=== PATIENT | male | born 1970 | race African-American/Black ===

== ENCOUNTER 2016-10-25 23:23 | Emergency (ER) | payer OTHER ==
[~2016-10-25] VITALS: Ht 177.8 cm; Wt 136.4 kg
[2016-10-25 23:27] VITALS: TEMP 98.5
[2016-10-25] MEDS ORDERED: COZAAR 50MG50 MG/TAB PO (23:30)
[2016-10-26] MEDS ORDERED: CRUTCHES MC (00:37)
[2016-10-26 01:04] VITALS: BP 169/93; PULSE 80
== END 2016-10-26 01:28 | disposition home or self-care (01) ==
LOC: COL.ER 23:23
DX: S83.92XA Sprain of unspecified site of left knee, initial encounter (principal); S86.812A Strain of other muscle(s) and tendon(s) at lower leg level, left leg, initial encounter; X50.3XXA Overexertion from repetitive movements, initial encounter; X50.0XXA Overexertion from strenuous movement or load, initial encounter; I10 Essential (primary) hypertension
CPT/HCPCS: L1830

== ENCOUNTER 2017-01-04 16:45 | Outpatient (RCR) | payer OTHER ==
[~2017-01-04 16:45] MED LIST: COZAAR 50MG50 MG/TAB PO; CRUTCHES MC
== END 2017-02-22 10:48 | disposition still patient (30) ==
LOC: WSPT 16:45
DX: M25.562 Pain in left knee (principal); R26.89 Other abnormalities of gait and mobility; R53.1 Weakness
CPT/HCPCS: G0283-GP

== ENCOUNTER → 2017-06-08 | Outpatient (CLI) | payer OTHER ==
[~2017-06-08] VITALS: Ht 177.8 cm; Wt 132.9 kg
[~2017-06-08] MED LIST changes: +ADIPEX-P37.5 MG PO; +GLUCOPHAGE500 MG/TAB PO; +MICARDIS HCT 251 TAB PO
[2017-06-08 17:07] VITALS: BP 140/82; PULSE 68
== END ==
LOC: LIGHT 09:17
DX: E16.1 Other hypoglycemia (principal); E78.5 Hyperlipidemia, unspecified; E66.01 Morbid (severe) obesity due to excess calories; Z68.41 Body mass index [BMI] 40.0-44.9, adult; Z71.3 Dietary counseling and surveillance; G47.33 Obstructive sleep apnea (adult) (pediatric)
CPT/HCPCS: G0463

== ENCOUNTER → 2017-06-14 | Outpatient (CLI) | payer OTHER | LOC: LIGHT 08:37 | DX: Z01.89 Encounter for other specified special examinations (principal) ==

== ENCOUNTER → 2017-07-06 | Outpatient (CLI) | payer OTHER ==
[~2017-07-06] VITALS: Ht 177.8 cm; Wt 129.3 kg
[2017-07-06 16:31] VITALS: BP 128/88; PULSE 76
== END ==
LOC: LIGHT 09:44
DX: E16.1 Other hypoglycemia (principal); E78.5 Hyperlipidemia, unspecified; E66.01 Morbid (severe) obesity due to excess calories; Z68.41 Body mass index [BMI] 40.0-44.9, adult; Z71.3 Dietary counseling and surveillance; G47.33 Obstructive sleep apnea (adult) (pediatric)

== ENCOUNTER → 2017-07-14 | Outpatient (CLI) | payer OTHER | LOC: LIGHT 15:58 | DX: Z01.818 Encounter for other preprocedural examination (principal) ==

== ENCOUNTER → 2017-08-17 | Outpatient (CLI) | payer OTHER | LOC: BHSO 09:02 | DX: Z01.818 Encounter for other preprocedural examination (principal) ==

== ENCOUNTER → 2017-09-14 | Outpatient (CLI) | payer OTHER ==
[~2017-09-14] VITALS: Ht 177.8 cm; Wt 123.8 kg
[2017-09-14 16:05] VITALS: BP 120/80; PULSE 80
== END ==
LOC: LIGHT 15:56
DX: E16.1 Other hypoglycemia (principal); E78.5 Hyperlipidemia, unspecified; E66.01 Morbid (severe) obesity due to excess calories; Z68.39 Body mass index [BMI] 39.0-39.9, adult; Z71.3 Dietary counseling and surveillance; G47.33 Obstructive sleep apnea (adult) (pediatric)
CPT/HCPCS: G0463

== ENCOUNTER → 2017-10-12 | Outpatient (CLI) | payer OTHER ==
[~2017-10-12] VITALS: Ht 177.8 cm; Wt 120.2 kg
[2017-10-12 16:22] VITALS: BP 120/84; PULSE 76
== END ==
LOC: LIGHT 08-03 09:02
DX: E16.1 Other hypoglycemia (principal); E78.5 Hyperlipidemia, unspecified; E66.01 Morbid (severe) obesity due to excess calories; Z68.38 Body mass index [BMI] 38.0-38.9, adult; Z71.3 Dietary counseling and surveillance; G47.33 Obstructive sleep apnea (adult) (pediatric)
CPT/HCPCS: G0463

== ENCOUNTER → 2017-11-16 | Outpatient (CLI) | payer OTHER ==
[~2017-11-16] VITALS: Ht 177.8 cm; Wt 119.5 kg
[2017-11-16 17:08] VITALS: BP 110/84; PULSE 72
== END ==
LOC: LIGHT 11:27
DX: E16.1 Other hypoglycemia (principal); E78.5 Hyperlipidemia, unspecified; G47.33 Obstructive sleep apnea (adult) (pediatric); E66.01 Morbid (severe) obesity due to excess calories; Z68.37 Body mass index [BMI] 37.0-37.9, adult; Z71.3 Dietary counseling and surveillance
CPT/HCPCS: G0463

== ENCOUNTER 2018-06-03 10:15 | Outpatient (RCR) | payer OTHER | END 2018-07-10 | disposition home or self-care (01) | LOC: WSPT | DX: M25.561 Pain in right knee (principal); Z79.84 Long term (current) use of oral hypoglycemic drugs; Z79.899 Other long term (current) drug therapy ==

== ENCOUNTER 2018-11-30 07:30 | Outpatient (RCR) | payer OTHER | END 2018-11-30 13:06 | disposition home or self-care (01) | LOC: WSPT 07:30 | DX: S83.20 Tear of unspecified meniscus, current injury (principal) ==

== ENCOUNTER 2020-03-06 09:00 | Outpatient (RCR) | payer OTHER | END 2020-03-31 | disposition home or self-care (01) | LOC: WSPT | DX: M25.662 Stiffness of left knee, not elsewhere classified (principal) | CPT/HCPCS: G0283-GP ==

== ENCOUNTER 2021-04-29 14:28 | Emergency (ER) | payer OTHER ==
[~2021-04-29] VITALS: Ht 175.3 cm; Wt 137.3 kg
[2021-04-29 14:35] VITALS: TEMP 98.5
[2021-04-29 15:16] LABS: BASO % 0.5 % (0.0-2.0); EOS # 0.2 K/mm3 (0.0-0.7); GRAN # 3.1 K/mm3 (1.4-6.5); GRAN % 53.3 % (42.2-75.2); HEMATOCRIT 44.7 % (42.0-52.0); HEMOGLOBIN 14.5 g/dl (13.5-18.0); LYMPH # 2.1 K/mm3 (1.2-3.4); LYMPH % 35.8 % (20.0-51.0); MEAN CELL VOLUME 77 fl (80.0-100.0); MEAN CORPUSCULAR HEMOGLOBIN 25 pg (27-31); MEAN CORPUSCULAR HGB CONC 32 g/dl (33.0-37.0); MEAN PLATELET VOLUME 10.1 fl (7.4-10.4); MONO # 0.4 K/mm3 (0.1-0.6); MONO % 7.2 % (1.7-9.3); PLATELET COUNT 193 K/mm3 (130-400); RED BLOOD COUNT 5.84 M/mm3 (4.20-5.60); REDCELL DISTRIBUTION WIDTH-CV 15.4 % (11.5-14.5)
[2021-04-29 15:33] LABS: ALBUMIN 4.2 gm/dL (3.5-5.0); BILIRUBIN,TOTAL 0.5 mg/dL (0.2-1.2); CALCIUM 9.4 mg/dL (8.4-10.2); CREATININE, serum 0.99 mg/dL (0.72-1.25); POTASSIUM 3.2 mmol/L (3.5-4.5); TOTAL PROTEIN 7.3 gm/dL (6.2-8.1)
[2021-04-29 17:42] VITALS: BP 139/86; PULSE 88
== END 2021-04-29 17:51 | disposition home or self-care (01) ==
LOC: COL.ER 14:28
PROVIDERS: Nurse Practitioner
DX: R06.00 Dyspnea, unspecified (principal); I10 Essential (primary) hypertension; Z20.822 Contact with and (suspected) exposure to COVID-19; Z79.899 Other long term (current) drug therapy

== ENCOUNTER → 2021-06-02 | Outpatient (RCR) | payer OTHER | END | disposition home or self-care (01) | LOC: WSPT | DX: M25.511 Pain in right shoulder (principal) ==

== ENCOUNTER 2021-06-23 09:45 | Outpatient (RCR) | payer OTHER | END 2021-07-03 | disposition home or self-care (01) | LOC: WSPT | DX: M25.511 Pain in right shoulder (principal) ==

== ENCOUNTER 2021-07-11 08:30 | Outpatient (RCR) | payer OTHER | END 2021-08-02 | LOC: WSPT | DX: M25.511 Pain in right shoulder (principal) ==

== ENCOUNTER 2021-07-24 13:00 | Outpatient (RCR) | payer OTHER | END 2021-08-02 | disposition home or self-care (01) | LOC: WSPT | DX: I89.0 Lymphedema, not elsewhere classified (principal) ==

== ENCOUNTER 2021-08-13 15:30 | Outpatient (RCR) | payer OTHER | END 2021-09-02 | LOC: WSPT | DX: I89.0 Lymphedema, not elsewhere classified (principal) ==

== ENCOUNTER 2021-09-16 14:15 | Outpatient (RCR) | payer OTHER | END 2021-10-02 | disposition home or self-care (01) | LOC: WSPT | DX: I89.0 Lymphedema, not elsewhere classified (principal) ==